=== PATIENT | female | born 2000 | race Caucasian/White ===

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

== ENCOUNTER → 2020-01-25 | Outpatient (CLI) | payer OTHER ==
[2020-01-28 12:09] LABS: CHLAMYDIA TRACHOMATIS, NAA Negative (Negative); NEISSERIA GONORRHOEAE, NAA Negative (Negative)
== END | disposition home or self-care (01) ==
LOC: LAB SHORT 11:30 → LAB 11:30
PROVIDERS: Family Medicine
DX: N89.8 Other specified noninflammatory disorders of vagina (principal)
CPT/HCPCS: 87491; 87591

== ENCOUNTER → 2020-05-07 | Outpatient (CLI) | payer OTHER ==
[~2020-05-07] MED LIST changes: +DOCU100 PO; +IBUP800 PO; +PRENATAL TABLE1 EAC2 PO; +PYRI100 PO; +ZEBUTAL 50-3251 EAC1 PO
[2020-05-07 15:47] LABS: Source, Urine Clean Catch
[2020-05-07 17:05] LABS: Red Blood Cells, Urine 0-2 /hpf (0-2)
[2020-05-07 17:06] LABS: Bacteria Many /hpf; Squamous Epithelial Cells Mod /hpf (Few)
[2020-05-07 19:19] LABS: BASOPHILS ABSOLUTE AUTO 0.03 K/mm3 (0.00-0.23); BASOPHILS PERCENT AUTO 0 % (0-2); EOSINOPHILS ABSOLUTE AUTO 0.05 K/mm3 (0.00-0.68); EOSINOPHILS PERCENT AUTO 1 % (0-6); Hematocrit 39.3 % (33.0-51.0); Hemoglobin 13.1 g/dL (11.5-16.0); IMMATURE GRAN ABSOLUTE AUTO 0.03 K/mm3 (0.00-0.10); IMMATURE GRAN PERCENT AUTO 0 % (0-1); LYMPHOCYTES ABSOLUTE AUTO 2.46 K/mm3 (0.84-5.20); LYMPHOCYTES PERCENT AUTO 29 % (21-46); MONOCYTES ABSOLUTE AUTO 0.59 K/mm3 (0.16-1.47); MONOCYTES PERCENT AUTO 7 % (4-13); Mean Corpuscular HGB 29.4 pg (26.0-34.0); Mean Corpuscular HGB Conc 33.3 g/dL (31.5-36.5); Mean Corpuscular Volume 88 fL (80-100); Mean Platelet Volume 10.8 fL (9.1-12.4); NEUTROPHILS ABSOLUTE AUTO 5.38 K/mm3 (1.96-9.15); NEUTROPHILS PERCENT AUTO 63 % (41-73); Platelet Count 266 K/mm3 (150-400); RDW Standard Deviation 42.2 fL (35.1-46.3); Red Blood Cell Count 4.46 M/mm3 (3.80-5.20); White Blood Cell Count 8.54 K/mm3 (4.00-11.30)
[2020-05-08 07:10] LABS: HBSAG SCREEN Negative (Negative)
[2020-05-08 08:10] LABS: HIV SCREEN 4TH GENERATION WRFX Non Reactive (Non Reactive)
== END ==
LOC: LAB 15:27 → LAB SHORT 15:27
PROVIDERS: Advanced Practice Midwife
DX: Z34.01 Encounter for supervision of normal first pregnancy, first trimester (principal)
CPT/HCPCS: 36415; 81015; 84443; 85025; 86592; 86762; 86850; 86900; 86901; 87077; 87086; 87186; 87340; 87389

== ENCOUNTER → 2020-06-08 | Outpatient (CLI) | payer OTHER ==
[2020-06-08 16:22] LABS: Source, Urine Clean Catch
[2020-06-08 18:48] LABS: Appearance, Urine Cloudy (Clear); Bilirubin, Urine Neg (Neg); Blood, Urine 2+ (Neg); Color, Urine Yellow (P-Yellow); Glucose Qualitative, Urine Neg (Neg); Ketones, Urine Neg (Neg); Leukocyte Esterase, Urine 1+ (Neg); Nitrite, Urine Neg (Neg); Protein, Urine 1+ (Neg); Specific Gravity, Urine 1.025 (1.003-1.022); Urobilinogen, Urine 1+ (Normal)
[2020-06-08 19:00] LABS: Red Blood Cells, Urine Not Seen /hpf (0-2); White Blood Cells, Urine Not Seen /hpf (0-5)
[2020-06-08 19:01] LABS: Amorphous Heavy (0-Heavy); Bacteria Few /hpf; Squamous Epithelial Cells Many /hpf (Few)
[2020-06-10 13:12] LABS: CHLAMYDIA TRACHOMATIS, NAA Negative (Negative)
== END | disposition home or self-care (01) ==
LOC: LAB SHORT 15:42 → LAB 15:42
PROVIDERS: Advanced Practice Midwife
DX: Z34.01 Encounter for supervision of normal first pregnancy, first trimester (principal)
CPT/HCPCS: 81001; 87086; 87491; 87591

== ENCOUNTER → 2021-12-06 | Outpatient (CLI) | payer OTHER ==
[2021-12-07 11:21] LABS: G. vaginalis (DNA Probe) Positive (NEGATIVE); T. vaginalis (DNA Probe) Negative (NEGATIVE)
[2021-12-07 11:22] LABS: Candida species (DNA Probe) Positive (NEGATIVE)
== END | disposition home or self-care (01) ==
LOC: LAB 16:34 → LAB SHORT 16:34
PROVIDERS: Advanced Practice Midwife
DX: Z01.419 Encounter for gynecological examination (general) (routine) without abnormal findings (principal); N89.8 Other specified noninflammatory disorders of vagina
CPT/HCPCS: 87480; 87510; 87660; G0123

== ENCOUNTER → 2023-05-04 | Outpatient (CLI) | payer OTHER ==
[2023-05-07 18:09] LABS: APTIMA MEDIA TYPE Unisex Swab; C. TRACHOMATIS BY TMA Negative (Negative); N. GONORRHOEAE BY TMA Negative (Negative); SPECIMEN SOURCE Vaginal
== END ==
LOC: LAB 18:19 → LAB SHORT 18:19
PROVIDERS: Advanced Practice Midwife
DX: Z11.3 Encounter for screening for infections with a predominantly sexual mode of transmission (principal)
CPT/HCPCS: 87491; 87591

== ENCOUNTER 2024-04-09 06:01 | Observation (INO) | payer OTHER ==
[~2024-04-09] VITALS: Ht 167.6 cm; Wt 80.3 kg
[2024-04-09] MEDS ORDERED: Ketorolac Tromethamine 30mg Vial IV ONE (06:40)
[2024-04-09 06:43] LABS: BASOPHILS ABSOLUTE AUTO 0.05 K/mm3 (0.00-0.23); BASOPHILS PERCENT AUTO 0 % (0-2); EOSINOPHILS PERCENT AUTO 1 % (0-6); Hematocrit 40.3 % (33.0-51.0); Hemoglobin 14.1 g/dL (11.5-16.0); IMMATURE GRAN ABSOLUTE AUTO 0.05 K/mm3 (0.00-0.10); IMMATURE GRAN PERCENT AUTO 0 % (0-1); LYMPHOCYTES ABSOLUTE AUTO 2.92 K/mm3 (0.84-5.20); LYMPHOCYTES PERCENT AUTO 25 % (21-46); MONOCYTES PERCENT AUTO 5 % (4-13); Mean Corpuscular HGB 31.7 pg (26.0-34.0); Mean Corpuscular Volume 91 fL (80-100); NEUTROPHILS ABSOLUTE AUTO 7.78 K/mm3 (1.96-9.15); NEUTROPHILS PERCENT AUTO 68 % (41-73); Platelet Count 264 K/mm3 (150-400); RDW Coefficient Variation 12.7 % (11.7-14.2); RDW Standard Deviation 42.1 fL (35.1-46.3); Red Blood Cell Count 4.45 M/mm3 (3.80-5.20)
[2024-04-09 06:55] LABS: Albumin, Blood 3.3 g/dL (3.4-5.0); Albumin/Globulin Ratio 0.9 (0.8-1.8); Bilirubin, Total 0.6 mg/dL (0.1-1.0); Calcium, Blood 8.9 mg/dL (8.5-10.1); Creatinine, Blood 0.58 mg/dL (0.40-1.00); Globulin, Blood 3.8 g/dL (2.2-4.0); Potassium, Blood 3.9 mmol/L (3.5-5.5); Total Protein, Blood 7.1 g/dL (6.4-8.2)
[2024-04-09] MEDS ORDERED: Morphine Sulfate 4 MG/1 ML Injection IV ONE (09:10)
[2024-04-09] MEDS ORDERED: Ampicillin Sod/Sulbactam Sod 3 GM in NS 100 ML IV ONE (09:15)
[2024-04-09] MEDS ORDERED: NS 1,000 ML IV SCH (09:15)
[2024-04-09] MEDS ORDERED: Morphine Sulfate 4 MG/1 ML Injection IV PRN (09:20)
[2024-04-09] MEDS ORDERED: Ketorolac Tromethamine 30mg Vial IV PRN (09:20)
[2024-04-09 10:38] VITALS: BP 127/85
[2024-04-09] MEDS ORDERED: Adipex-P37.5 M1 PO (10:40)
[2024-04-09] MEDS ORDERED: MULVITA PO (10:41)
[2024-04-09] MEDS ORDERED: VITAMIN D31250 MC2 PO (10:42)
[2024-04-09] MEDS ORDERED: PROG100 PO (10:44)
[2024-04-09] MEDS ORDERED: SLOW FE137 MG PO (10:45)
[2024-04-09] MEDS ORDERED: Ondansetron HCl 2 MG / ML 2ML Vial IV PRN (14:10)
[2024-04-09 14:37] VITALS: BP 123/73
[2024-04-09] MEDS ORDERED: FLU VACC TS2024-25(6MOS UP)/PF 45 MCG/0.5 ML SYRINGE IM ONE (17:10)
[2024-04-09] MEDS ORDERED: Ampicillin Sod/Sulbactam Sod 3 GM in NS 100 ML IV SCH (18:00)
[2024-04-09 19:37] VITALS: BP 120/70
--- NOTE | 2024-04-09 19:38 | NUR ---
SHIFT SUMMARY WAS HOPEFUL FOR SURGERY TODAY BUT UNDERSTANDS REASONS. PLEASANT & UPBEAT. TOLERATIND CLEAR LQs WELL. DENIES N/V & DENIES PAIN JUST REPORTS OCC DISCOMFORT. UNDERSTANDS NPO AFTER MN. IVF & ABX GIVEN.
[2024-04-10] VITALS (16 sets, daily range): BP systolic 106–132; BP diastolic 49–88
--- NOTE | 2024-04-10 05:53 | NUR ---
SHIFT SUMMARY S/P ABD PAIN. NO ACUTE CHANGES OVERNIGHT. VSS. NPO SINCE MIDNIGHT. IV FLUIDS/ABX INFUSING PER EMAR. VOIDING. PT IND IN ROOM/SBA R/T LINE MANAGEMENT. PT REPORTS PAIN TOLERABLE, MEDICATED PER EMAR. ANTICIPATED SURGERY LATER TODAY. CALL LIGHT IN REACH, BED IN LOWEST POSITION, WILL REPORT TO DAY RN.
[2024-04-10] MEDS ORDERED: Bupivacaine 0.5% HCl 5 MG/ML 30MLVIAL ONE (09:04)
--- NOTE | 2024-04-10 09:59 | NUR ---
DR SPARROW IN TO SEE PT.
--- NOTE | 2024-04-10 12:29 | NUR ---
[facility]
[2024-04-10] MEDS ORDERED: Lactated Ringer's 1,000 ML IV SCH (12:35)
[2024-04-10] MEDS ORDERED: Midazolam HCl 1MG / ML 2ML Vial ONE (12:52)
[2024-04-10] MEDS ORDERED: propofoL 20 ML IV ONE (12:52)
[2024-04-10] MEDS ORDERED: FentaNYL Citrate 50 MCG/ML 2 ML Injection ONE ×2 (12:52→15:45)
--- NOTE | 2024-04-10 12:56 | NUR ---
History, Chart, Medications and Allergies reviewed before start of procedure. Lungs clear T/O to Auscultation. Patient confirms NPO status and agrees with scheduled surgery. Pre-Op teaching done. Pt verbalizes understanding.
[2024-04-10] MEDS ORDERED: Ondansetron HCl 2 MG / ML 2ML Vial ONE (14:01)
[2024-04-10] MEDS ORDERED: Rocuronium Bromide 10 MG/ML 5ML Injection IV ONE ×2 (14:01→15:03)
[2024-04-10] MEDS ORDERED: Dexamethasone Sod Phos 10 MG/ML 1ML VIAL ONE (14:01)
[2024-04-10] MEDS ORDERED: HYDROmorphone HCl/Pf 1MG SYR ONE (14:28)
[2024-04-10] MEDS ORDERED: Esmolol HCL 10 MG/ML 10ML VIAL ONE (14:38)
[2024-04-10] MEDS ORDERED: Sugammadex Sodium 200 MG/2ML SDV (100 MG/ML) ONE (14:58)
[2024-04-10] MEDS ORDERED: Morphine Sulfate 4 MG/1 ML Injection IV PRN (15:25)
[2024-04-10] MEDS ORDERED: NS 1,000 ML IV SCH (15:30)
[2024-04-10] MEDS ORDERED: HYDROcodone 5-APAP 325 TAB PO PRN (15:30)
[2024-04-10] MEDS ORDERED: Norco 5-325 Ta1 EACH PO (15:34)
--- NOTE | 2024-04-10 16:23 | NUR ---
PT ARRIVED BACK TO UNIT FROM PACU. TRANSFERRED PT FROM [facility] TO BED. LAP INCISIONS X4 W/STERI STRIPS CDI. VSS. CALL LIGHT IN REACH. WATER, APPLE SAUCE AND CRACKERS PROVIDED. PT SLEEPY.
--- NOTE | 2024-04-10 18:01 | NUR ---
DISCHARGE WOKE UP & IS REQUESTING TO GO HOME. EASILY AMBULATES TO VOID IN BATHROOM. DENIES DIZZINESS. TAKING IN FLUIDS & BITES OF FOOD. SURG SITE WNL. ESCORTED OUT VIA WC.
== END 2024-04-10 18:01 | disposition home or self-care (01) ==
LOC: ER 06:01 → SURS 06:02
PROVIDERS: Student in an Organized Health Care Education/Training Program; Surgery; ADMIT Surgery
PROC: 0FT44ZZ Resection of Gallbladder, Percutaneous Endoscopic Approach (ICD-10-PCS; principal; 2024-04-10 12:00)
PROC: BF03YZZ Plain Radiography of Gallbladder and Bile Ducts using Other Contrast (ICD-10-PCS; principal; 2024-04-10 12:00)
DX: K80.12 Calculus of gallbladder with acute and chronic cholecystitis without obstruction (principal)
CPT/HCPCS: 74300; 76705; 80053; 83690; 84703; 85025; 96365; 96366; 96367; 96375; 96376; 99285-25; A9270; C1729; G0378; J0295; J1100; J1171; J1885; J2250; J2270; J2405; J2704; J3010; J7030; J7120